=== PATIENT | male | born 1985 | race Two or more races ===

== ENCOUNTER 2024-02-15 14:37 | Emergency (ER) | payer OTHER ==
[~2024-02-15] VITALS: Ht 182.9 cm; Wt 86.2 kg
[2024-02-15 14:41] VITALS: BP 126/76; O2SAT 98
[2024-02-15] MEDS ORDERED: AMOX1TAB5 PO (14:52)
[2024-02-15] MEDS ORDERED: PEPCID AC20 MG PO (14:52)
[2024-02-15] MEDS ORDERED: DOLOGESIC-DF 51 EACH PO (14:52)
[2024-02-15] MEDS ORDERED: KETO10TA2 PO (14:52)
[2024-02-15] MEDS ORDERED: KETOROLAC TROMETHAMINE 60 MG VIAL IM ONE (15:00)
[2024-02-15] MEDS ORDERED: CEFTRIAXONE SODIUM 1,000 MG VIAL IM ONE (15:00)
== END 2024-02-15 15:33 | disposition home or self-care (01) ==
LOC: ER 14:39
DX: K08.89 Other specified disorders of teeth and supporting structures (principal)

== ENCOUNTER 2024-12-01 16:14 | Emergency (ER) | payer OTHER ==
[~2024-12-01] VITALS: Ht 182.9 cm; Wt 86.2 kg
[~2024-12-01 16:14] MED LIST: AMOX1TAB5 PO; DOLOGESIC-DF 51 EACH PO; KETO10TA2 PO; PEPCID AC20 MG PO
[2024-12-01] MEDS ORDERED: LIDOCAINE HCL 1% 10ML VIAL PERCUT ONE (17:00)
[2024-12-01] MEDS ORDERED: DUI500 PO (17:43)
[2024-12-01] MEDS ORDERED: CEFTRIAXONE SODIUM 1,000 MG VIAL IM ONE (17:45)
== END 2024-12-01 17:58 ==
LOC: ER 16:14
DX: S61.412A Laceration without foreign body of left hand, initial encounter (principal); W26.0XXA Contact with knife, initial encounter; Y93.89 Activity, other specified; Y92.69 Other specified industrial and construction area as the place of occurrence of the external cause; Y99.8 Other external cause status

== ENCOUNTER 2025-01-17 13:56 | Emergency (ER) | payer OTHER ==
[~2025-01-17] VITALS: Ht 182.9 cm; Wt 81.6 kg
[~2025-01-17 13:56] MED LIST changes: +DUI500 PO
[2025-01-17] MEDS ORDERED: ORPHENADRINE CITRATE 30 MG/ML AMPUL ONE (15:39)
[2025-01-17] MEDS ORDERED: KETOROLAC TROMETHAMINE 60 MG VIAL IM ONE ×2 (15:40→15:45)
[2025-01-17] MEDS ORDERED: DEXAMETHASONE SODIUM PHOSPHATE 4 MG/ML VIAL ONE (15:40)
[2025-01-17] MEDS ORDERED: ACETAMINOPHEN 500 MG GEL..CAP PO ONE ×2 (15:40→15:45)
[2025-01-17] MEDS ORDERED: ORPHENADRINE CITRATE 30 MG/ML AMPUL IM ONE (15:45)
[2025-01-17] MEDS ORDERED: DEXAMETHASONE SODIUM PHOSPHATE 4 MG/ML VIAL IM ONE (15:45)
[2025-01-17] MEDS ORDERED: PEPCID AC20 MG PO (16:29)
[2025-01-17] MEDS ORDERED: IBU600 MG PO (16:29)
[2025-01-17] MEDS ORDERED: NORFLEX100MG PO (16:29)
== END 2025-01-17 16:56 | disposition home or self-care (01) ==
LOC: ER 13:57
DX: S93.492A Sprain of other ligament of left ankle, initial encounter (principal); X50.9XXA Other and unspecified overexertion or strenuous movements or postures, initial encounter; Y93.89 Activity, other specified; Y92.89 Other specified places as the place of occurrence of the external cause